=== PATIENT | female | born 1985 | race African-American/Black ===

== ENCOUNTER 2017-06-11 20:27 | Outpatient (CLI) | payer OTHER ==
[~2017-06-11] VITALS: Ht 162.6 cm; Wt 50.5 kg
[~2017-06-11 20:27] MED LIST: BACTRIM,SEPT1 TABLET PO; CIPRO500 MG PO; Feosol PO; MOTRIN800 MG PO; Macrobid PO; Motrin PO; NABUMETONE750 MG PO; Natalcare Rx,Pramile PO; PERCOCET 5/31 TABLET PO; PRILOSEC40 MG PO; TRAMADOL HCL50 MG PO; ZOFRAN4 MG PO; ~No Medications
[2017-06-11 20:54] LABS: EOSINOPHIL (%) 0.3 % (0-5); HEMATOCRIT 30.4 % (36.0-46.0); IMMATURE GRANULOCYTE (%) 0.8 % (0.0-0.7); IMMATURE GRANULOCYTE COUNT 0.1 K/uL; INSTRUMENT ABS NEUTROPHIL CT 5.4 K/uL; LYMPHOCYTE COUNT 0.5 K/uL (1.0-2.8); MCH 26.5 PG (29.0-34.0); MCHC 32.6 G/DL (30.0-36.0); MCV 81.3 FL (83-99); MEAN PLAT.VOLUME 9.3 uM^3 (9.5-12.4); MONOCYTE (%) 0.2 % (3-12); NEUTROPHIL (%) 89.7 % (45-76); NEUTROPHIL COUNT 5.4 K/uL (1.8-6.4); NRBC (%) 0.5 /100 WBC (0-0); PLATELET COUNT 168 K/uL (156-360); RBC DIS.WIDTH-CV 15.4 % (11.8-14.6); RBC DIS.WIDTH-SD 44.6 % (39-53); RED BLOOD COUNT 3.74 M/uL (3.80-5.20); WHITE BLOOD COUNT 6.1 K/uL (4.1-10.2)
[2017-06-11 21:03] LABS: CHLORIDE 101 mEq/L (99-109); SODIUM 131 mEq/L (136-147)
[2017-06-11 21:05] LABS: GLUCOSE 77 mg/dL (70-99)
[2017-06-11 21:07] LABS: TOTAL BILIRUBIN 0.4 mg/dL (0.0-1.0)
[2017-06-11 21:08] LABS: ALKALINE PHOSPHATASE 89 IU/L (3-129)
[2017-06-11 21:09] LABS: GFR ESTIMATE (CALCULATED) > 59 mL/min/
[2017-06-11 21:10] LABS: UREA NITROGEN (BUN) 4 mg/dL (9-23)
[2017-06-11 21:12] LABS: LIPASE 28 U/L (1.0-51.0)
[2017-06-11 21:35] LABS: ANION GAP 16 MEQ/L (2-14); QUANTITATIVE HCG 28936.9 MIU/ML
[2017-06-11 23:12] LABS: ADD MIUA? YES; BILIRUBIN NEGATIVE; BLOOD SMALL; COLOR YELLOW ((YELLOW)); GLUCOSE (STRIP) NEGATIVE; KETONES 5; LEUKOCYTES LARGE; NITRITE POSITIVE; PROTEIN (STRIP) 30; SPECIFIC GRAVITY 1.005 (1.000-1.030); UROBILINOGEN 0.2 MG/DL (0.2-1.0)
[2017-06-11 23:31] LABS: BACTERIA RARE /HPF; EPITHELIAL CELLS NONE SEEN /HPF; HYALINE CASTS 0-5 /LPF; MUCUS NONE SEEN /LPF; RED BLOOD CELLS 0-5 /HPF (0-5); UCUL ADDED? YES; WHITE BLOOD CELLS TNTC /HPF (0-5)
[2017-06-12 00:55] VITALS: BP 99/55
[2017-06-12 03:07] VITALS: BP 110/59
[2017-06-12 08:00] VITALS: BP 106/60
[2017-06-12] MEDS ORDERED: TERAZOL 745 GM VG (08:59)
[2017-06-12] MEDS ORDERED: CEFTIN500 MG PO (08:59)
[2017-06-12] MEDS ORDERED: PRENATAL TABLE1 EACH PO (08:59)
[2017-06-12 11:33] VITALS: BP 94/53
[2017-06-12 16:13] VITALS: BP 96/57
== END 2017-06-12 17:37 | disposition home or self-care (01) ==
LOC: EME → LDRP-OP 20:27 → EDBD 20:27 → EME 20:27 → 2WEST 06-12 00:28 → EME 06-12 00:28 → 2WEST 06-12 17:37
PROVIDERS: Emergency Medicine
DX: O23.02 Infections of kidney in pregnancy, second trimester (principal); R50.9 Fever, unspecified; O98.812 Other maternal infectious and parasitic diseases complicating pregnancy, second trimester; B37.9 Candidiasis, unspecified; Z3A.19 19 weeks gestation of pregnancy; O09.32 Supervision of pregnancy with insufficient antenatal care, second trimester
CPT/HCPCS: 59025; 76705; 76770; 76805; 80053; 81003; 83605; 83690; 84702; 85025; 86870; 86900; 86901; 86920; 87040; 87086; 99281; 99285; G0378; J0696; J3010; J7030; J7050